=== PATIENT | male | born 1985 ===

== ENCOUNTER 2017-08-09 12:12 | Emergency (ER) | payer SELFPAY ==
[~2017-08-09] VITALS: Ht 165.1 cm; Wt 87.8 kg
[2017-08-09 12:17] VITALS: BP 122/85
== END 2017-08-09 13:05 | disposition left against medical advice (07) | DRG 951 ==
LOC: ED 12:12 → LWOBS 13:05 → ED 13:05
DX: Z91.19 Patient's noncompliance with other medical treatment and regimen (principal)